=== PATIENT | male | born 1990 | race Caucasian/White ===

== ENCOUNTER 2018-06-21 08:22 | Emergency (ER) | payer OTHER ==
[~2018-06-21] VITALS: Ht 175.3 cm; Wt 91.2 kg
[~2018-06-21 08:22] MED LIST: ALEVE220 M2; DOXYCYCLINE HY100 MG PO; FLEXERIL10 MG; MEDROL DOSEPAK4 MG PO; NOHOMEMEDS; TRAMADOL HCL50 MG
[2018-06-21 09:31] LABS: HEMATOCRIT 40.7 % (38.0-50.0); HEMOGLOBIN 14.2 G/DL (12.5-16.6); MCH 31.5 PG (29.0-34.0); MCHC 34.9 G/DL (30.0-36.0); MCV 90.2 FL (86-99); RBC DIS.WIDTH-CV 12.7 % (11.8-14.6); RBC DIS.WIDTH-SD 41.4 % (39-53); RED BLOOD COUNT 4.51 M/uL (4.00-5.50); WHITE BLOOD COUNT 16.5 K/uL (4.1-10.2)
[2018-06-21 09:37] LABS: ALBUMIN 4.4 g/dL (3.2-4.8); CHLORIDE 104 mEq/L (99-109); SODIUM 138 mEq/L (136-147)
[2018-06-21 09:40] LABS: GLUCOSE 168 mg/dL (70-99); TOTAL PROTEIN 7.8 g/dL (6.4-8.3)
[2018-06-21 09:40] LABS: APPEARANCE CLEAR ((CLEAR)); BILIRUBIN NEGATIVE; BLOOD SMALL; COLOR AMBER ((YELLOW)); GLUCOSE (STRIP) NEGATIVE; KETONES 5; LEUKOCYTES NEGATIVE; NITRITE NEGATIVE; PROTEIN (STRIP) NEGATIVE; SPECIFIC GRAVITY 1.019 (1.000-1.030)
[2018-06-21 09:42] LABS: TOTAL BILIRUBIN 0.3 mg/dL (0.0-1.0)
[2018-06-21 09:43] LABS: ALKALINE PHOSPHATASE 105 IU/L (3-129); GFR ESTIMATE (CALCULATED) > 59 mL/min/ (58.99-99999)
[2018-06-21 09:44] LABS: UREA NITROGEN (BUN) 11 mg/dL (9-23)
[2018-06-21 09:45] LABS: AST (GOT) 39 IU/L (2-34)
[2018-06-21 09:46] LABS: ALT (GPT) 70 IU/L (3-49)
[2018-06-21 10:09] LABS: BACTERIA NONE SEEN /HPF; EPITHELIAL CELLS NONE SEEN /HPF; MUCUS TRACE /LPF; RED BLOOD CELLS 0-5 /HPF (0-5); UCUL ADDED? NO; WHITE BLOOD CELLS 0-5 /HPF (0-5)
[2018-06-21 10:19] LABS: PLAT.SUFFICIENCY ADEQUATE; PLATELET COUNT 242 K/uL (156-360)
[2018-06-21] MEDS ORDERED: ZOFRAN ODT4 MG PO (10:47)
[2018-06-21] MEDS ORDERED: NAPROSYN500 MG PO (10:47)
[2018-06-21 11:00] VITALS: BP 109/71
== END 2018-06-21 11:10 | disposition home or self-care (01) ==
LOC: EME 08:22
PROVIDERS: Nurse Practitioner Family
DX: A08.4 Viral intestinal infection, unspecified (principal); R31.9 Hematuria, unspecified; F11.20 Opioid dependence, uncomplicated; K76.0 Fatty (change of) liver, not elsewhere classified; F17.200 Nicotine dependence, unspecified, uncomplicated
CPT/HCPCS: 74176; 80053; 81003; 85027; 99281; 99284; J1885